=== PATIENT | female | born 1980 | race African-American/Black ===

== ENCOUNTER 2016-10-07 16:52 | Emergency (ER) | payer OTHER ==
[2016-10-07 17:00] VITALS: BP 158/83; PULSE 84; TEMP 98.2; BMI 40.7
[2016-10-07 17:38] LABS: URINE APPEARANCE CLEAR; URINE BILIRUBIN NEGATIVE (NEGATIVE); URINE BLOOD NEGATIVE (NEGATIVE); URINE COLOR STRAW; URINE GLUCOSE (UA) NEGATIVE (NEGATIVE); URINE KETONE NEGATIVE (NEGATIVE); URINE LEUK ESTERASE NEGATIVE (NEGATIVE); URINE NITRITE NEGATIVE (NEGATIVE); URINE PROTEIN NEGATIVE (NEGATIVE); URINE UROBILINOGEN NEGATIVE E.U./dl (0.2-1.0)
--- NOTE | 2016-10-07 17:56 | PDOC ---
[id number] PAIN Time Seen by Provider: 10/07/16 17:10 History Source: Patient Exam Limitations: No Limitations - History of Present Illness Initial Comments: 10/07/16 17:51 36 yr female with low back pain vaginal discharge, itching. . Pt denies any history of STD's in the past. Last HIV test was negative this year. no medical history. 10/07/16 18:29 Past History - Past Medical History Allergies/Adverse Reactions: Allergies Allergy/AdvReac Type Severity Reaction Status Date / Time No Known Allergies Allergy Verified 10/07/16 16:59 Home Medications: Ambulatory Orders Fluconazole [Diflucan -] 50 mg PO ONCE #1 tablet 10/07/16 Fluconazole [Diflucan -] 100 mg PO ONCE #1 tablet 10/07/16 Other medical history: PT DENIES MEDICAL HX - Reproductive History (#): 6 Para: 2 Spontaneous : 1 - Psycho/Social/Smoking Cessation Hx Anxiety: No Suicidal Ideation: No Smoking Status: No Smoking History: Never smoked Number of Cigarettes Smoked Daily: 0 Hx Alcohol Use: No Drug/Substance Use Hx: No Substance Use Type: Alcohol Review of Systems - Review of Systems Able to Perform ROS?: Yes Is the patient limited Polish proficient: No Constitutional: No: Symptoms Reported HEENTM: No: Symptoms Reported Respiratory: No: Symptoms reported Cardiac (ROS): No: Symptoms Reported ABD/GI: No: Symptoms Reported : Yes: Symptoms Reported, See HPI *Physical Exam - Vital Signs Last Vital Signs Temp Pulse Resp BP Pulse Ox 98.2 F 84 16 158/83 97 10/07/16 16:55 10/07/16 16:55 10/07/16 16:55 10/07/16 16:55 10/07/16 16:55 - Physical Exam General Appearance: Yes: Nourished, Appropriately Dressed HEENT: positive: EOMI, SARTHAK, Normal ENT Inspection, TMs Normal, Pharynx Normal Neck: positive: Supple. negative: Tender Respiratory/Chest: positive: Lungs Clear, Normal Breath Sounds. negative: Chest Tender Cardiovascular: positive: Regular Rhythm, Regular Rate Female Pelvic Exam: positive: normal external exam, other (white discharge , yeast like ) Gastrointestinal/Abdominal: positive: Normal Bowel Sounds, Soft Musculoskeletal: positive: Normal Inspection Extremity: positive: Normal Capillary Refill, Normal Inspection, Normal Range of Motion Integumentary: positive: Normal Color, Dry, Warm Neurologic: positive: Fully Oriented, Alert, Normal Mood/Affect, Normal Response , Motor Strength 5/5 ED Treatment Course - ADDITIONAL ORDERS Additional order review: Laboratory Results 10/07/16 17:00 Urine Color Straw Urine Appearance Clear Urine pH 5.0 D Ur Specific [place] 1.012 Urine Protein Negative Urine Glucose (UA) Negative Urine Ketones Negative Urine Blood Negative Urine Nitrite Negative Urine Bilirubin Negative Urine Urobilinogen Negative Ur Leukocyte Esterase Negative Urine HCG, Qual Negative Medical Decision Making - Medical Decision Making 10/07/16 18:06 cc: vaginal discharge , itching urinary urgency no abd pain will send genital culture, UA, chlamydia ghonorrhea exam findings consistent with yeast infection will treat with diflucan 10/07/16 18:06 10/07/16 18:15 10/07/16 18:29 *DC/Admit/Observation/Transfer Diagnosis at time of Disposition: Vaginal yeast infection - Discharge Dispostion Disposition: HOME Condition at time of disposition: Good - Prescriptions Prescriptions: Fluconazole [Diflucan -] 100 mg PO ONCE #1 tablet Fluconazole [Diflucan -] 50 mg PO ONCE #1 tablet - Referrals Referrals: Raleigh Gonzalez MD [Primary Care Provider] - - Patient Instructions Additional Instructions: drink pleanty of water no sexual intercourse until symptoms improve follow with the transportation inspector for follow up
== END 2016-10-07 18:42 | disposition home or self-care (01) ==
LOC: JERFT 16:52
DX: B37.3 Candidiasis of vulva and vagina (principal)
CPT/HCPCS: 36415; 81003; 84703; 87070; 87086; 87205; 87491; 87591; 99281-25

== ENCOUNTER 2017-09-11 10:51 | Emergency (ER) | payer OTHER ==
[2017-09-11 11:01] VITALS: BMI 30.7
--- NOTE | 2017-09-11 11:16 | PDOC ---
History of Present Illness - General Chief Complaint: Cold Symptoms Stated Complaint: FEVER Time Seen by Provider: 09/11/17 11:15 Past History - Past History Allergies/Adverse Reactions: Allergies No Known Allergies Allergy (Verified 09/11/17 10:58) Home Medications: Ambulatory Orders Fluconazole [Diflucan -] 50 mg PO ONCE #1 tablet 10/07/16 Fluconazole [Diflucan -] 100 mg PO ONCE #1 tablet 10/07/16 Immunization Status Up to Date: Yes - Social History Smoking History: No Smoking Status: Never smoked Number of Cigarettes Smoked Per Day: 0 Drug Use: none *Physical Exam - Vital Signs Last Vital Signs Temp Pulse Resp BP Pulse Ox 101.7 F H 104 H 17 130/81 98 09/11/17 10:58 09/11/17 10:58 09/11/17 10:58 09/11/17 10:58 09/11/17 10:58 *DC/Admit/Observation/Transfer - Referrals Referrals: Raleigh Gonzalez MD [Primary Care Provider] - - Patient Instructions - Post Discharge Activity
[2017-09-11] MEDS ORDERED: IBUPROFEN 600 MG TABLET (FP) PO ONE ×2 (11:35→11:36)
--- NOTE | 2017-09-11 11:52 | PDOC ---
History of Present Illness - General History Source: Patient Exam Limitations: No Limitations - History of Present Illness Initial Comments: 09/11/17 11:52 37 y.o female with no significant past medical history who presents to the emergency room today complaining of 2 days of sore throat, subjective fever, chills, body aches, and nonproductive cough. The patient states that she works at [employer] and may have had sick contact. She also reports one episode of nonbloody, nonbilious vomiting yesterday afternoon. The patient notes that she was vaccinated for the flu this season. Denies SOB, chest pain. Denies abdominal pain, diarrhea, constipation. Denies recent travel. Denies urinary symptoms. Allergies: NKA PCP: Dr. Raleigh Gonzalez <Rochelle Foster - Last Filed: 09/11/17 11:52> <Clinton Rouse - Last Filed: 09/11/17 12:58> - General Chief Complaint: Cold Symptoms Stated Complaint: FEVER Time Seen by Provider: 09/11/17 11:15 Past History <Rochelle Foster - Last Filed: 09/11/17 11:52> - Past Medical History COPD: No DVT: No Dementia: No - Reproductive History (#): 6 Para: 2 Spontaneous : 1 - Immunization History Immunization Up to Date: Yes - Suicide/Smoking/Psychosocial Hx Smoking Status: No Smoking History: Never smoked Have you smoked in the past 12 months: No Number of Cigarettes Smoked Daily: 0 Information on smoking cessation initiated: No Hx Alcohol Use: No Drug/Substance Use Hx: No Substance Use Type: Alcohol <Clinton Rouse - Last Filed: 09/11/17 12:58> - Past Medical History Allergies/Adverse Reactions: Allergies Allergy/AdvReac Type Severity Reaction Status Date / Time No Known Allergies Allergy Verified 09/11/17 10:58 Home Medications: Ambulatory Orders NK [No Known Home Medication] 09/11/17 Review of Systems - Review of Systems Able to Perform ROS?: Yes Comments:: 09/11/17 11:52 CONSTITUTIONAL: +fever, +chills. EYES: No visual changes ENT: +sore throat. No ear pain CARDIOVASCULAR: No chest pain, no palpitations RESPIRATORY: No cough, no SOB GI: +vomiting. No abdominal pain, no constipation, no diarrhea GENITOURINARY: No dysuria, no frequency, no hematuria MUSKULOSKELETAL: No back pain, no joint pain, no myalgias SKIN: No rash NEURO: No headache <Rochelle Foster - Last Filed: 09/11/17 11:52> *Physical Exam - Vital Signs Last Vital Signs Temp Pulse Resp BP Pulse Ox 101.7 F H 104 H 17 130/81 98 09/11/17 10:58 09/11/17 10:58 09/11/17 10:58 09/11/17 10:58 09/11/17 10:58 - Physical Exam Comments: 09/11/17 11:52 CONSTITUTIONAL: Well-appearing; well-nourished; febrile and tachycardic HEAD: Normocephalic; atraumatic EYES: PERRL; EOM intact ENMT: +Erythema of the oropharynx with enlarged bilateral cervical lymphadenopathy NECK: Supple; nontender CARD: tachycardic. Normal S1, S2; no murmurs, rubs, or gallops RESP: Normal chest excursion with respiration; breath sounds clear and equal bilaterally; no wheezes, rhonchi, or rales ABD: Soft, non-distended; non-tender; no palpable organomegaly, no palpable hernias EXT: Normal ROM in all four extremities; non-tender to palpation; distal pulses intact SKIN: Warm, dry, no rash NEURO: No focal neurological deficiencies. <Rochelle Foster - Last Filed: 09/11/17 11:52> - Vital Signs Last Vital Signs Temp Pulse Resp BP Pulse Ox 101.7 F H 104 H 17 130/81 98 09/11/17 10:58 09/11/17 10:58 09/11/17 10:58 09/11/17 10:58 09/11/17 10:58 <Clinton Rouse - Last Filed: 09/11/17 12:58> ED Treatment Course - Medications Given in the ED: ED Medications Discontinued Medications Generic Name Dose Route Start Last Admin Trade Name Freq PRN Reason Stop Dose Admin Ibuprofen 600 mg 09/11/17 11:35 09/11/17 11:45 Motrin - PO 09/11/17 11:36 600 mg ONCE ONE Administration <Rochelle Foster - Last Filed: 09/11/17 11:52> - Medications Given in the ED: ED Medications Discontinued Medications Generic Name Dose Route Start Last Admin Trade Name Ayush PRN Reason Stop Dose Admin Ibuprofen 600 mg 09/11/17 11:35 09/11/17 11:45 Motrin - PO 09/11/17 11:36 600 mg ONCE ONE Administration <Clinton Rouse - Last Filed: 09/11/17 12:58> Medical Decision Making - Medical Decision Making 09/11/17 12:56 Patient is well-appearing 37-year-old female who presents to the ER with symptoms of acute pharyngitis and viral syndrome. In the ER, patient is febrile and mildly tachycardic and initial evaluation. No meningeal signs present. Lungs are clear there is no petechial rash. Serial abdominal exams reveal no focal tenderness. Patient is group A strep and influenza negative. I suspect viral syndrome. Influenza is less likely and no indication for Tamiflu therapy is present at this time. Will discharge patient with NSAIDs, hydration instructions and will instruct patient to remain away from patient care for the next 72-96 hours with PMD follow-up afterwards. <Clinton Rouse - Last Filed: 09/11/17 12:58> *DC/Admit/Observation/Transfer - Attestations Scribe Attestion: 09/11/17 11:53 Documentation prepared by ANGELICA Jacobsen, acting as medical laboratory technical officer for Clinton Rouse MD. <Rochelle Foster - Last Filed: 09/11/17 11:52> - Attestations Physician Attestion: 09/11/17 12:56 The documentation was prepared by the scribe under my direct supervision. I have reviewed the documentation which correctly represents the findings, medical decision-making and critical action taken by me. <Clinton Rouse - Last Filed: 09/11/17 12:58> Diagnosis at time of Disposition: Viral syndrome - Discharge Dispostion Disposition: HOME Condition at time of disposition: Stable - Referrals Referrals: Raleigh Gonzalez MD [Primary Care Provider] - - Patient Instructions Printed Discharge Instructions: DI for Viral Upper Respiratory Infection -- Adult - Post Discharge Activity Forms/Work/School Notes: Back to Work
[2017-09-11 13:02] VITALS: BP 126/78; PULSE 78; TEMP 98.6
--- NOTE | 2017-09-12 19:22 | PDOC ---
Patient Follow-up (Call Back) - Post ED Follow - Up Condition at time of discharge: Stable Disposition at time of original discharge: HOME Reason for Call Back: Abnwl. Microbiology (Throat culture was positive for strep , I have sent a prescription in for azithromycin, I have called patient to make her aware the prescription was sent in.)
== END 2017-09-11 13:02 | disposition home or self-care (01) ==
LOC: JERFT 10:51 → JER 10:51
DX: J06.9 Acute upper respiratory infection, unspecified (principal); B97.89 Other viral agents as the cause of diseases classified elsewhere
CPT/HCPCS: 87070; 87077; 87430; 87804; 99282-25

== ENCOUNTER 2022-03-02 15:16 | Emergency (ER) | payer OTHER ==
[2022-03-02 15:40] VITALS: BP 129/69; PULSE 68; RESP 18; TEMP 98.6; BMI 47.0
[2022-03-02] MEDS ORDERED: DIPHTH,PERTUSS(ACELL),TET 0.5 ML DISP.SYRIN IM ONE ×2 (16:05→16:20)
== END 2022-03-02 18:24 | disposition home or self-care (01) ==
LOC: JERFT 15:16
PROC: 3E0234Z Introduction of Serum, Toxoid and Vaccine into Muscle, Percutaneous Approach (ICD-10-PCS; principal; 2022-03-02)
DX: S60.414A Abrasion of right ring finger, initial encounter (principal); W23.1XXA Caught, crushed, jammed, or pinched between stationary objects, initial encounter
CPT/HCPCS: 90715; 99284-25

== ENCOUNTER 2022-10-18 14:36 | Emergency (ER) | payer OTHER ==
[2022-10-18 15:00] VITALS: BP 138/69; PULSE 67; RESP 20; TEMP 98.1; BMI 36.6
[2022-10-18] MEDS ORDERED: IBUPROFEN 600 MG TABLET (FP) PO ONE ×2 (16:52)
[2022-10-18] MEDS ORDERED: METHOCARBAMOL 500 MG TABLET PO ONE (16:52)
[2022-10-18] MEDS ORDERED: METHOCARBAMOL 500 MG TABLET ONE (16:53)
== END 2022-10-18 18:12 | disposition home or self-care (01) ==
LOC: JERFT 14:36
DX: M54.50 Low back pain, unspecified (principal); G44.319 Acute post-traumatic headache, not intractable; V49.50XA Passenger injured in collision with unspecified motor vehicles in traffic accident, initial encounter
CPT/HCPCS: 99283-25

== ENCOUNTER 2023-09-23 09:22 | Emergency (ER) | payer OTHER ==
[2023-09-23 09:33] VITALS: BP 150/64; PULSE 82; RESP 18; TEMP 99.3; BMI 36.6
[2023-09-23] MEDS ORDERED: ACETAMINOPHEN INJECTION 100 ML IVPB ONE (10:18)
[2023-09-23] MEDS ORDERED: ONDANSETRON 4 MG/2 ML VIAL ONE (10:18)
[2023-09-23] MEDS: ONDANSETRON 4 MG/2 ML VIAL IVPUSH ONE (10:43)
[2023-09-23] MEDS: ACETAMINOPHEN 1000 MG/100 ML BAG IVPB ONE (10:43)
[2023-09-23] MEDS: SODIUM CHLORIDE 0.9% 500 ML INFUS.BAG IV ONE (10:43)
[2023-09-23 10:59] LABS: PH,URINE 5.5 (5.0-8.0); URINE APPEARANCE CLOUDY; URINE BILIRUBIN NEGATIVE (NEGATIVE); URINE COLOR YELLOW; URINE GLUCOSE (UA) NEGATIVE (NEGATIVE); URINE KETONE NEGATIVE (NEGATIVE); URINE LEUK ESTERASE NEGATIVE (NEGATIVE); URINE NITRITE NEGATIVE (NEGATIVE); URINE PROTEIN TRACE (NEGATIVE)
[2023-09-23 11:01] LABS: BASO % 0.5 % (0-2.0); EOS % 1.1 % (0-4.5); HEMATOCRIT 26.3 % (32.4-45.2); HEMOGLOBIN 8.2 GM/dL (10.7-15.3); LYMPH % 17.8 % (8-40); MCH 21.3 pg (25.7-33.7); MCHC 31.1 g/dl (32.0-36.0); MEAN CELL VOLUME 68.5 fl (80-96); MEAN PLT VOLUME 8.1 fl (7.5-11.1); MONO % 7.6 % (3.8-10.2); PLATELET COUNT 326 10^3/uL (134-434); RBC 3.84 M/mm3 (3.60-5.2); WHITE BLOOD COUNT 4.3 K/mm3 (4.0-10.0)
[2023-09-23 11:10] LABS: HCG,QUALITATIVE URINE Negative
[2023-09-23 11:22] LABS: POTASSIUM 3.6 mmol/L (3.5-5.1)
[2023-09-23 11:25] LABS: ALBUMIN 3.3 g/dl (3.4-5.0); BLOOD UREA NITROGEN 6.7 mg/dL (7-18); CALCIUM 8.3 mg/dL (8.5-10.1)
[2023-09-23 11:28] LABS: CREATININE 0.8 mg/dL (0.55-1.3)
[2023-09-23 11:29] LABS: BILIRUBIN,TOTAL 0.5 mg/dL (0.2-1); TOT PROT 7.1 g/dl (6.4-8.2)
[2023-09-23 11:46] LABS: ANISOCYTOSIS 1+; MACROCYTOSIS 0
== END 2023-09-23 14:32 | disposition home or self-care (01) ==
LOC: JER 09:22
PROC: 3E033NZ Introduction of Analgesics, Hypnotics, Sedatives into Peripheral Vein, Percutaneous Approach (ICD-10-PCS; principal; 2023-09-23)
PROC: 3E033GC Introduction of Other Therapeutic Substance into Peripheral Vein, Percutaneous Approach (ICD-10-PCS; 2023-09-23)
DX: M54.50 Low back pain, unspecified (principal); R30.0 Dysuria; R35.0 Frequency of micturition; R10.30 Lower abdominal pain, unspecified; R11.10 Vomiting, unspecified; Z20.822 Contact with and (suspected) exposure to COVID-19
CPT/HCPCS: 0241U-QW; 36415; 80053; 81003; 84703; 85025; 87086; 99284-25; J0131